=== PATIENT | male | born 1980 | race Caucasian/White ===

== ENCOUNTER 2017-09-05 17:48 | Emergency (ER) | payer SELFPAY ==
[~2017-09-05] VITALS: Ht 172.7 cm; Wt 63.6 kg
[2017-09-05 17:56] VITALS: BP 127/80
[2017-09-05 18:25] LABS: BASOPHILS # (AUTO) 0.06 x10^3/uL (0-0.1); BASOPHILS % (AUTO) 1 % (0-1); EOSINOPHILS # (AUTO) 0.04 x10^3/uL (0-0.4); EOSINOPHILS % (AUTO) 1 % (1-7); LYMPHOCYTES # (AUTO) 2.38 x10^3/uL (1-3.4); LYMPHOCYTES % (AUTO) 27 % (22-44); MD NO; MEAN CORPUSCULAR HGB CONC 34.1 g/dL (33.2-36.2); MEAN CORPUSCULAR VOLUME 90.9 fL (81-97); MEAN PLATELET VOLUME 9.5 fL (7.4-10.4); MONOCYTES # (AUTO) 0.47 x10^3/uL (0.2-0.8); MONOCYTES % (AUTO) 5 % (2-9); NEUTROPHILS # (AUTO) 5.76 x10^3/uL (1.8-6.8); NEUTROPHILS % (AUTO) 66 % (42-75); PLATELET COUNT 169 x10^3/uL (130-400); RED BLOOD COUNT 4.99 x10^6/uL (4.38-5.82)
[2017-09-05] MEDS ORDERED: SODIUM CHLORIDE 0.9% 1,000ML IVBOLUS ONE (18:30)
[2017-09-05 18:32] LABS: ALANINE AMINOTRANSFERASE 37 U/L (12-78); ALBUMIN 4.5 g/dL (3.4-5.0); ANION GAP 9 mmol/L (5-15); CHLORIDE 109 mmol/L (98-107); CREATININE 1.13 mg/dL (0.7-1.3)
[2017-09-05 18:33] LABS: ALKALINE PHOSPHATASE 133 U/L (45-117); BILIRUBIN,TOTAL 1.6 mg/dL (0.2-1.0); TOTAL PROTEIN 7.8 g/dL (6.4-8.2)
[2017-09-05 19:32] LABS: MICROSCOPIC AUTO
[2017-09-05 19:33] LABS: CULTURE INDICATED? YES
== END 2017-09-05 20:44 | disposition home or self-care (01) ==
LOC: ED 19:35
DX: R53.1 Weakness (principal)
CPT/HCPCS: 36415; 80053; 81001; 85025; 87086; 93005; 99285; J7030

== ENCOUNTER 2017-11-27 23:18 | Emergency (ER) | payer MEDICAID, OTHER ==
[~2017-11-27] VITALS: Ht 172.7 cm; Wt 74.1 kg
[2017-11-28 01:53] VITALS: BP 109/77
== END 2017-11-28 01:56 | disposition home or self-care (01) ==
LOC: ED 23:59
DX: R06.00 Dyspnea, unspecified (principal); Z87.891 Personal history of nicotine dependence
CPT/HCPCS: 71046; 93005; 99284

== ENCOUNTER 2017-12-07 07:38 | Emergency (ER) | payer MEDICAID ==
[~2017-12-07] VITALS: Ht 172.7 cm; Wt 70.0 kg
[2017-12-07 07:42] VITALS: BP 121/70
== END 2017-12-07 10:21 | disposition home or self-care (01) ==
LOC: ED 08:46
DX: M25.421 Effusion, right elbow (principal); Z87.442 Personal history of urinary calculi
CPT/HCPCS: 99284

== ENCOUNTER 2018-08-12 12:18 | Emergency (ER) | payer MEDICAID ==
[~2018-08-12] VITALS: Ht 172.7 cm; Wt 74.9 kg
[2018-08-12 12:21] VITALS: BP 125/76
--- NOTE | 2018-08-12 12:59 | NUR ---
PT TO ROOM FROM LOBBY
== END 2018-08-12 13:32 | disposition home or self-care (01) ==
LOC: ED 13:31
DX: S00.83XD Contusion of other part of head, subsequent encounter (principal)
CPT/HCPCS: 72110; 99283

== ENCOUNTER 2020-09-13 08:21 | Emergency (ER) | payer MEDICAID ==
[~2020-09-13] VITALS: Ht 170.2 cm; Wt 88.7 kg
--- NOTE | 2020-09-13 08:44 | NUR ---
Pt reports he's a former smoker, and has been working outside in the smoke. Pt reports he has a stuffy nose and SOB because of it. Denies medical hx. Connected to all monitors. VSS. NADN. [employer] to bedside for eval.
[2020-09-13 09:11] LABS: BASOPHILS % (AUTO) 1 % (0-1); EOSINOPHILS % (AUTO) 1 % (1-7); LYMPHOCYTES % (AUTO) 29 % (22-44); MEAN CORPUSCULAR HEMOGLOBIN 30.1 pg (27.5-34.5); MEAN PLATELET VOLUME 8.7 fL (7.4-10.4); MONOCYTES % (AUTO) 6 % (2-9); NEUTROPHILS % (AUTO) 63 % (42-75); PLATELET COUNT 164 x10^3/uL (130-400); RED BLOOD COUNT 4.79 x10^6/uL (4.38-5.82); RED CELL DISTRIBUTION WIDTH 13.6 % (9.4-14.8)
[2020-09-13 09:22] LABS: ALBUMIN 3.8 g/dL (3.4-5.0); ANION GAP 7 mmol/L (5-15); CALCIUM 8.8 mg/dL (8.5-10.1); CHLORIDE 111 mmol/L (98-107)
[2020-09-13 09:27] LABS: ALANINE AMINOTRANSFERASE 40 U/L (12-78); ALKALINE PHOSPHATASE 124 U/L (45-117); BILIRUBIN,TOTAL 1.2 mg/dL (0.2-1.0); CREATININE 0.94 mg/dL (0.7-1.3); TOTAL PROTEIN 6.8 g/dL (6.4-8.2); TROPONIN I < 0.015 ng/mL (0.000-0.045)
[2020-09-13 10:47] VITALS: BP 123/83
== END 2020-09-13 11:00 | disposition home or self-care (01) ==
LOC: ED 10:50
DX: J98.01 Acute bronchospasm (principal); Z20.822 Contact with and (suspected) exposure to COVID-19; R07.9 Chest pain, unspecified; Z87.891 Personal history of nicotine dependence; Z90.89 Acquired absence of other organs
CPT/HCPCS: 36415; 71045; 80053; 84484; 85025; 93005; 99285; U0003; U0005